=== PATIENT | male | born 1940 | race African-American/Black ===

== ENCOUNTER 2023-02-03 22:34 | Inpatient (IN) | payer OTHER, MEDICAID ==
[~2023-02-03] VITALS: Ht 165.1 cm; Wt 56.7 kg
[2023-02-03 22:44] VITALS: BP_SYST 105; PULSE 88; RESP 18; TEMP 97.9; O2SAT 95
[2023-02-03 23:45] LABS: BASOPHILS % (AUTO) 0.5 % (0.0-2.0); EOSINOPHILS # (AUTO) 0.1 K/uL (0.0-0.4); EOSINOPHILS % (AUTO) 0.9 % (0.0-4.0); LYMPHOCYTES # (AUTO) 0.5 K/uL (1.0-5.5); LYMPHOCYTES % (AUTO) 5.4 % (20.5-51.5); MEAN CORPUSCULAR HEMOGLOBIN 26 pg (27-31); MEAN CORPUSCULAR HGB CONC 33 % (32-36); MEAN CORPUSCULAR VOLUME 78 fL (79.0-98.0); MONOCYTES # (AUTO) 0.4 K/uL (0.0-1.0); MONOCYTES % (AUTO) 4.7 % (1.7-9.3); NEUTROPHILS # (AUTO) 7.5 K/uL (1.8-7.7); NEUTROPHILS % (AUTO) 88.5 % (40.0-70.0); PLATELET COUNT (AUTO) 318 K/uL (130-430); RED BLOOD CELL COUNT(AUTO) 2.45 MIL/uL (4.2-6.2); RED CELL DISTRIBUTION WIDTH 14.4 % (9.0-15.0); WHITE BLOOD COUNT (AUTO) 8.4 K/uL (4.8-10.8)
[2023-02-03 23:52] LABS: HEMATOCRIT 19.2 % (36-54); HEMOGLOBIN 6.3 g/dL (14.0-18.0)
[2023-02-03 23:59] LABS: ANION GAP 11 (5-15); CALCIUM 8.5 mg/dL (8.4-11.0); CARBON DIOXIDE 24 mmol/L (23-29); CHLORIDE 104 mmol/L (98-107); CREATININE 1.92 mg/dL (0.55-1.30); GLUCOSE 140 mg/dL (74-106); POTASSIUM 4.3 mmol/L (3.5-5.1); SODIUM SERUM 139 mmol/L (136-145); UREA NITROGEN, BLOOD 51 mg/dL (8-21)
[2023-02-04 00:06] LABS: ALANINE AMINOTRANSFERASE 23 U/L (12-78); ALBUMIN 1.9 g/dL (3.4-4.8); ASPARTATE AMINOTRANSFERASE 23 U/L (10-37); TOTAL BILIRUBIN 0.5 mg/dL (0.0-1.0); TOTAL PROTEIN, SERUM 6.5 g/dL (6.4-8.3)
[2023-02-04] MEDS ORDERED: ACET325T PO (03:21)
[2023-02-04] MEDS ORDERED: ASCO500T20 PO (03:22)
[2023-02-04] MEDS ORDERED: FURO-149 PO (03:22)
[2023-02-04] MEDS ORDERED: BISA10SU77 RC (03:22)
[2023-02-04] MEDS ORDERED: COR12.5 PO (03:22)
[2023-02-04] MEDS ORDERED: ACET-73 PO (03:22)
[2023-02-04] MEDS ORDERED: NITSL SL (03:22)
[2023-02-04] MEDS ORDERED: ALBU2.5V7 INH (03:22)
[2023-02-04] MEDS ORDERED: MOM PO (03:22)
[2023-02-04] MEDS ORDERED: BUDE0.5A4 IH (03:22)
[2023-02-04] MEDS ORDERED: NEPH PO (03:22)
[2023-02-04] MEDS ORDERED: HYDR100T25 PO (03:22)
[2023-02-04] MEDS ORDERED: HYDR-3917 PO (03:22)
[2023-02-04] MEDS ORDERED: FERR-31 PO (03:22)
[2023-02-04] MEDS ORDERED: SSNOVOLOG SUBCUT (03:22)
[2023-02-04] MEDS ORDERED: RESEYE OP (03:22)
[2023-02-04] MEDS ORDERED: ALEN10TA25 PO (03:22)
[2023-02-04] MEDS ORDERED: CLON0.1T PO (03:22)
[2023-02-04] MEDS ORDERED: LIP10 PO (03:22)
[2023-02-04] MEDS ORDERED: FINA5TAB3 PO (03:22)
[2023-02-04] MEDS ORDERED: ISOS30TA85 PO (03:22)
[2023-02-04] MEDS ORDERED: SENN8.6T19 PO (03:22)
[2023-02-04] MEDS ORDERED: AMLO5TAB4 PO (03:22)
[2023-02-04] MEDS ORDERED: DOCU-144 PO (03:22)
[2023-02-04] MEDS ORDERED: INSULIN LISPRO SLIDING SCALE 100 UNITS/ML, 3 ML VIAL (humaLOG) SUBCUT PRN (07:00)
[2023-02-04] MEDS ORDERED: POTASSIUM CHLORIDE 20 MEQ TAB.PRT.SR PO PRN (07:00)
[2023-02-04] MEDS ORDERED: LORazepam 2 MG/ML VIAL IVP PRN (07:00)
[2023-02-04] MEDS ORDERED: NALOXONE HCL 0.4 MG/ML AMP (NARCAN) IVP PRN ×2 (07:00)
[2023-02-04] MEDS ORDERED: MUPIROCIN 2% TOPICAL OINTMENT 22 GM NS PRN (07:00)
[2023-02-04] MEDS ORDERED: MAGNESIUM SULFATE 50 ML IV PRN (07:00)
[2023-02-04] MEDS ORDERED: DOCUSATE SODIUM 100 MG CAPSULE PO PRN (07:00)
[2023-02-04] MEDS ORDERED: MORPHINE 2 MG/ML INJ. SYRINGE IVP PRN ×2 (07:00)
[2023-02-04] MEDS ORDERED: ONDANSETRON HCL 4 MG/2 ML VIAL IVP PRN (07:00)
[2023-02-04] MEDS ORDERED: DEXTROSE 50% JECT 50 ML DISP.SYRIN IVP PRN (07:00)
[2023-02-04] MEDS ORDERED: ZOLPIDEM TARTRATE 5 MG TABLET PO PRN (07:00)
[2023-02-04 07:10] LABS: BILIRUBIN,URINE NEGATIVE (NEGATIVE); BLOOD, URINE NEGATIVE (NEGATIVE); CLARITY/URINE SLIGHTLY CLOUDY (CLEAR); COLOR,URINE YELLOW (YELLOW); GLUCOSE,URINE NEGATIVE (NEGATIVE); KETONES,URINE NEGATIVE (NEGATIVE); LEUKOCYTE ESTERASE ,URINE NEGATIVE (NEGATIVE); NITRITE, URINE NEGATIVE (NEGATIVE)
[2023-02-04 07:11] LABS: PROTEIN URINE 3+ (NEGATIVE); UROBILINOGEN,URINE 0.2 (0.2-1.0)
[2023-02-04 07:14] LABS: BACTERIA,URINE RARE /HPF (None Seen)
[2023-02-04] MEDS ORDERED: ALEN70TA84 PO (07:39)
[2023-02-04 07:59] LABS: ANION GAP 6 (5-15); CALCIUM 8.4 mg/dL (8.4-11.0); CARBON DIOXIDE 23 mmol/L (23-29); CHLORIDE 104 mmol/L (98-107); GLUCOSE 101 mg/dL (74-106); POTASSIUM 3.7 mmol/L (3.5-5.1); SODIUM SERUM 133 mmol/L (136-145); UREA NITROGEN, BLOOD 48 mg/dL (8-21)
[2023-02-04 08:07] LABS: BASOPHILS # (AUTO) 0.1 K/uL (0.0-0.2); EOSINOPHILS # (AUTO) 0.2 K/uL (0.0-0.4); EOSINOPHILS % (AUTO) 2.8 % (0.0-4.0); LYMPHOCYTES # (AUTO) 0.5 K/uL (1.0-5.5); LYMPHOCYTES % (AUTO) 8.5 % (20.5-51.5); MEAN CORPUSCULAR HEMOGLOBIN 26 pg (27-31); MEAN CORPUSCULAR HGB CONC 33 % (32-36); MEAN CORPUSCULAR VOLUME 79 fL (79.0-98.0); MONOCYTES # (AUTO) 0.4 K/uL (0.0-1.0); MONOCYTES % (AUTO) 6.1 % (1.7-9.3); NEUTROPHILS % (AUTO) 81.6 % (40.0-70.0); PLATELET COUNT (AUTO) 297 K/uL (130-430); RED CELL DISTRIBUTION WIDTH 13.9 % (9.0-15.0); WHITE BLOOD COUNT (AUTO) 6.1 K/uL (4.8-10.8)
[2023-02-04] MEDS: D5NS 1,000 ML IV SCH ×2 (08:16→08:56)
[2023-02-04 08:18] LABS: TOTAL IRON BIND. CAPACITY 77 ug/dL (250-450)
[2023-02-04 08:19] LABS: HEMOGLOBIN A1C 6.46 % (<5.7)
[2023-02-04 08:33] LABS: HEMATOCRIT 17.3 % (36-54); HEMOGLOBIN 5.7 g/dL (14.0-18.0)
[2023-02-04] MEDS: hydrALAZINE HCL 25 MG TABLET PO SCH ×3 (09:29→20:47)
[2023-02-04] MEDS: PANTOPRAZOLE SODIUM 40 MG/VIAL (PROTONIX) IVP SCH (09:29)
[2023-02-04 10:00] VITALS: BP_SYST 114; PULSE 78; RESP 20; TEMP 97.8; O2SAT 100
[2023-02-04] MEDS ORDERED: SOD FERRIC GLUC COMPLEX/SUC 125 MG in NS 100 ML IV SCH (13:15)
[2023-02-04] MEDS: IRON SUCROSE COMPLEX 100 MG in NS 50 ML IV SCH (15:50)
[2023-02-04 16:30] VITALS: BP_SYST 114; PULSE 80; O2SAT 100
[2023-02-04 20:00] VITALS: BP_SYST 163; PULSE 86; RESP 20; TEMP 100.1; O2SAT 98
[2023-02-04] MEDS: ACETAMINOPHEN 325 MG TABLET PO PRN (20:46)
[2023-02-05] VITALS (7 sets, daily range): BP systolic 140–151; PULSE 79–89; RESP 16–21; TEMP 97.8–99.3; O2SAT 97–99
[2023-02-05 05:27] LABS: BASOPHILS # (AUTO) 0.1 K/uL (0.0-0.2); BASOPHILS % (AUTO) 0.8 % (0.0-2.0); EOSINOPHILS # (AUTO) 0.3 K/uL (0.0-0.4); EOSINOPHILS % (AUTO) 3.8 % (0.0-4.0); HEMATOCRIT 27.3 % (36-54); HEMOGLOBIN 8.8 g/dL (14.0-18.0); LYMPHOCYTES # (AUTO) 0.4 K/uL (1.0-5.5); LYMPHOCYTES % (AUTO) 5.8 % (20.5-51.5); MEAN CORPUSCULAR HEMOGLOBIN 26 pg (27-31); MEAN CORPUSCULAR HGB CONC 32 % (32-36); MEAN CORPUSCULAR VOLUME 80 fL (79.0-98.0); MONOCYTES # (AUTO) 0.5 K/uL (0.0-1.0); MONOCYTES % (AUTO) 6.6 % (1.7-9.3); PLATELET COUNT (AUTO) 335 K/uL (130-430); RED BLOOD CELL COUNT(AUTO) 3.42 MIL/uL (4.2-6.2); RED CELL DISTRIBUTION WIDTH 14.9 % (9.0-15.0); WHITE BLOOD COUNT (AUTO) 7.2 K/uL (4.8-10.8)
[2023-02-05 05:46] LABS: ANION GAP 11 (5-15); CALCIUM 8.5 mg/dL (8.4-11.0); CARBON DIOXIDE 22 mmol/L (23-29); CHLORIDE 108 mmol/L (98-107); CREATININE 1.68 mg/dL (0.55-1.30); GLUCOSE 121 mg/dL (74-106); POTASSIUM 3.9 mmol/L (3.5-5.1); SODIUM SERUM 141 mmol/L (136-145); UREA NITROGEN, BLOOD 42 mg/dL (8-21)
[2023-02-05] MEDS: D5NS 1,000 ML IV SCH (06:29)
[2023-02-05] MEDS: ACETAMINOPHEN 325 MG TABLET PO PRN ×2 (06:38→22:19)
[2023-02-05 08:06] LABS: FERRITIN 336 ng/mL (30-400); FOLATE (FOLIC ACID) >20.0 ng/mL (>3.0)
[2023-02-05] MEDS: PANTOPRAZOLE SODIUM 40 MG/VIAL (PROTONIX) IVP SCH (08:59)
[2023-02-05] MEDS: hydrALAZINE HCL 25 MG TABLET PO SCH ×3 (08:59→22:18)
[2023-02-05] MEDS: IPRATROPIUM/ALBUTEROL SULFATE 3 ML AMPUL.NEB (DUONEB) INH PRN ×2 (10:33→22:40)
[2023-02-05] MEDS: IRON SUCROSE COMPLEX 100 MG in NS 50 ML IV SCH (14:55)
[2023-02-06 01:02] VITALS: BP_SYST 152; PULSE 86; RESP 16; TEMP 97.9; O2SAT 98
[2023-02-06 02:51] VITALS: O2SAT 98
[2023-02-06] MEDS: D5NS 1,000 ML IV SCH ×2 (05:42→16:12)
[2023-02-06 05:54] LABS: BASOPHILS # (AUTO) 0.1 K/uL (0.0-0.2); BASOPHILS % (AUTO) 0.8 % (0.0-2.0); EOSINOPHILS # (AUTO) 0.2 K/uL (0.0-0.4); EOSINOPHILS % (AUTO) 3.5 % (0.0-4.0); HEMATOCRIT 25.2 % (36-54); HEMOGLOBIN 8.1 g/dL (14.0-18.0); LYMPHOCYTES # (AUTO) 0.6 K/uL (1.0-5.5); LYMPHOCYTES % (AUTO) 8.4 % (20.5-51.5); MEAN CORPUSCULAR HEMOGLOBIN 26 pg (27-31); MEAN CORPUSCULAR HGB CONC 32 % (32-36); MEAN CORPUSCULAR VOLUME 81 fL (79.0-98.0); MONOCYTES # (AUTO) 0.4 K/uL (0.0-1.0); MONOCYTES % (AUTO) 5.3 % (1.7-9.3); NEUTROPHILS # (AUTO) 5.7 K/uL (1.8-7.7); PLATELET COUNT (AUTO) 297 K/uL (130-430); RED BLOOD CELL COUNT(AUTO) 3.11 MIL/uL (4.2-6.2); RED CELL DISTRIBUTION WIDTH 14.9 % (9.0-15.0); WHITE BLOOD COUNT (AUTO) 6.9 K/uL (4.8-10.8)
[2023-02-06 06:19] LABS: ANION GAP 9 (5-15); CALCIUM 8.1 mg/dL (8.4-11.0); CARBON DIOXIDE 23 mmol/L (23-29); CHLORIDE 109 mmol/L (98-107); CREATININE 1.82 mg/dL (0.55-1.30); GLUCOSE 93 mg/dL (74-106); SODIUM SERUM 141 mmol/L (136-145); UREA NITROGEN, BLOOD 41 mg/dL (8-21)
[2023-02-06] MEDS ORDERED: BENZOCAINE 20% 0.5mL UD SPRAY MM ONE (07:00)
[2023-02-06 08:00] VITALS: BP_SYST 154; PULSE 85; RESP 16; TEMP 97.9; O2SAT 98
[2023-02-06] MEDS ORDERED: MIDAZOLAM HCL 5 MG/5 ML VIAL ONE (08:54)
[2023-02-06] MEDS ORDERED: fentaNYL CITRATE/PF 100 MCG/2 ML AMP ONE (08:54)
[2023-02-06] MEDS: hydrALAZINE HCL 25 MG TABLET PO SCH ×3 (09:00→20:35)
[2023-02-06 11:00] VITALS: BP_SYST 151; PULSE 82; RESP 18; TEMP 98.9; O2SAT 99
[2023-02-06] MEDS: PANTOPRAZOLE SODIUM 40 MG/VIAL (PROTONIX) IVP SCH (11:22)
[2023-02-06] MEDS: IRON SUCROSE COMPLEX 100 MG in NS 50 ML IV SCH (14:04)
[2023-02-06 19:01] VITALS: BP_SYST 164; PULSE 84; RESP 18; TEMP 97.4; O2SAT 97
[2023-02-06 20:24] VITALS: BP_SYST 158; PULSE 100; RESP 22; TEMP 100.4; O2SAT 100
[2023-02-06] MEDS: ACETAMINOPHEN 325 MG TABLET PO PRN (20:34)
[2023-02-06] MEDS: FERROUS SULFATE 325 MG TABLET.DR PO SCH (20:35)
[2023-02-07] VITALS (9 sets, daily range): BP systolic 152–167; PULSE 68–96; RESP 17–22; TEMP 97.1–98.7; O2SAT 96–100
[2023-02-07 05:27] LABS: BASOPHILS # (AUTO) 0.1 K/uL (0.0-0.2); BASOPHILS % (AUTO) 0.7 % (0.0-2.0); EOSINOPHILS # (AUTO) 0.1 K/uL (0.0-0.4); EOSINOPHILS % (AUTO) 1.8 % (0.0-4.0); HEMATOCRIT 25.8 % (36-54); HEMOGLOBIN 8.3 g/dL (14.0-18.0); LYMPHOCYTES # (AUTO) 0.4 K/uL (1.0-5.5); LYMPHOCYTES % (AUTO) 5.4 % (20.5-51.5); MEAN CORPUSCULAR HEMOGLOBIN 26 pg (27-31); MEAN CORPUSCULAR HGB CONC 32 % (32-36); MEAN CORPUSCULAR VOLUME 82 fL (79.0-98.0); MONOCYTES # (AUTO) 0.4 K/uL (0.0-1.0); MONOCYTES % (AUTO) 5.1 % (1.7-9.3); NEUTROPHILS # (AUTO) 6.9 K/uL (1.8-7.7); PLATELET COUNT (AUTO) 310 K/uL (130-430); RED BLOOD CELL COUNT(AUTO) 3.16 MIL/uL (4.2-6.2); RED CELL DISTRIBUTION WIDTH 14.8 % (9.0-15.0)
[2023-02-07 05:32] LABS: ANION GAP 8 (5-15); CALCIUM 8.4 mg/dL (8.4-11.0); CARBON DIOXIDE 24 mmol/L (23-29); CHLORIDE 111 mmol/L (98-107); CREATININE 1.64 mg/dL (0.55-1.30); GLUCOSE 128 mg/dL (74-106); POTASSIUM 4.6 mmol/L (3.5-5.1); SODIUM SERUM 143 mmol/L (136-145); UREA NITROGEN, BLOOD 31 mg/dL (8-21)
[2023-02-07] MEDS: D5NS 1,000 ML IV SCH (06:51)
[2023-02-07] MEDS ORDERED: PANTOPRAZOLE SODIUM 40 MG TAB PO SCH (09:00)
[2023-02-07] MEDS: FERROUS SULFATE 325 MG TABLET.DR PO SCH (09:35)
[2023-02-07] MEDS: hydrALAZINE HCL 25 MG TABLET PO SCH (09:36)
[2023-02-07] MEDS: ACETAMINOPHEN 325 MG TABLET PO PRN (13:05)
[2023-02-07] MEDS ORDERED: cloNIDine HCL 0.1 MG TABLET PO ONE (13:30)
[2023-02-11 12:59] LABS: CREATININE 1.87 mg/dL (0.55-1.30)
[2023-02-12] MEDS ORDERED: ALPR0.5T PO (23:01)
[2023-02-16] MEDS ORDERED: AMLO5TAB4 PO (08:28)
[2023-02-16] MEDS ORDERED: AMOX-423 PO (08:29)
== END 2023-02-07 14:30 | DRG 378 ==
LOC: SED 22:34 → STU 02-04 01:49 → SMU 02-05 10:37
PROVIDERS: ADMIT General Practice; ATTEND General Practice
PROC: 30233N1 Transfusion of Nonautologous Red Blood Cells into Peripheral Vein, Percutaneous Approach (ICD-10-PCS; 2023-02-04)
PROC: 0DB78ZX Excision of Stomach, Pylorus, Via Natural or Artificial Opening Endoscopic, Diagnostic (ICD-10-PCS; principal; 2023-02-06 10:00)
DX: K29.81 Duodenitis with bleeding (principal); E44.0 Moderate protein-calorie malnutrition; N17.9 Acute kidney failure, unspecified; K29.70 Gastritis, unspecified, without bleeding; J44.9 Chronic obstructive pulmonary disease, unspecified; D50.9 Iron deficiency anemia, unspecified; D63.1 Anemia in chronic kidney disease; N18.9 Chronic kidney disease, unspecified; I12.9 Hypertensive chronic kidney disease with stage 1 through stage 4 chronic kidney disease, or unspecified chronic kidney disease; E78.5 Hyperlipidemia, unspecified; Z68.20 Body mass index [BMI] 20.0-20.9, adult
CPT/HCPCS: 36415; 43239; 71045; 80048; 80053; 81000; 82607; 82728; 82746; 82962; 83037; 83540; 83550; 83735; 83880; 84484; 85025; 86886; 86900; 86901; 86920; 87081; 88305; 88312; 88313; 93005; 94640; 94760; 99285; C9113; G0378; J1756; J2250; J3010; J7030; J7040; J7042; P9021

== ENCOUNTER 2023-03-23 09:07 | Inpatient (IN) | payer OTHER, MEDICAID ==
[~2023-03-23] VITALS: Ht 165.1 cm; Wt 56.7 kg
[2023-03-23 09:07] VITALS: BP_SYST 156; PULSE 66; RESP 17; TEMP 97.8; O2SAT 99
[~2023-03-23 09:07] MED LIST: ACET325T PO; ALBU2.5V7 INH; ALEN70TA84 PO; ALPR0.5T PO; AMLO5TAB4 PO; AMOX-423 PO; ASCO500T20 PO; BISA10SU77 RC; BUDE0.5A4 IH; CLON0.1T PO; COR12.5 PO; DOCU-144 PO; FERR-31 PO; FINA-37 PO; FURO-149 PO; HYDR-3917 PO; HYDR100T25 PO; ISOS30TA85 PO; LIP10 PO; MOM PO; NEPH PO; NITSL SL; RESEYE OP; SENN8.6T19 PO; SSNOVOLOG SUBCUT
[2023-03-23 09:40] LABS: BASOPHILS % (AUTO) 1.2 % (0.0-2.0); MEAN CORPUSCULAR HGB CONC 32 % (32-36); MONOCYTES # (AUTO) 0.2 K/uL (0.0-1.0); NEUTROPHILS # (AUTO) 2.7 K/uL (1.8-7.7); RED BLOOD CELL COUNT(AUTO) 2.46 MIL/uL (4.2-6.2); WHITE BLOOD COUNT (AUTO) 3.6 K/uL (4.8-10.8)
[2023-03-23 09:46] LABS: EOSINOPHILS # (AUTO) 0.2 K/uL (0.0-0.4); EOSINOPHILS % (AUTO) 4.3 % (0.0-4.0); LYMPHOCYTES # (AUTO) 0.6 K/uL (1.0-5.5); LYMPHOCYTES % (AUTO) 15.5 % (20.5-51.5); MEAN CORPUSCULAR HEMOGLOBIN 27 pg (27-31); MEAN CORPUSCULAR VOLUME 84 fL (79.0-98.0); PLATELET COUNT (AUTO) 128 K/uL (130-430); RED CELL DISTRIBUTION WIDTH 19.7 % (9.0-15.0)
[2023-03-23 09:52] LABS: HEMATOCRIT 20.6 % (36-54); HEMOGLOBIN 6.6 g/dL (14.0-18.0)
[2023-03-23 10:04] LABS: ANION GAP 4 (5-15); CALCIUM 7.2 mg/dL (8.4-11.0); CARBON DIOXIDE 26 mmol/L (23-29); CHLORIDE 109 mmol/L (98-107); CREATININE 1.29 mg/dL (0.55-1.30); GLUCOSE 103 mg/dL (74-106); POTASSIUM 4.6 mmol/L (3.5-5.1); SODIUM SERUM 139 mmol/L (136-145); UREA NITROGEN, BLOOD 25 mg/dL (8-21)
[2023-03-23 10:13] LABS: ALANINE AMINOTRANSFERASE 28 U/L (12-78); ALBUMIN 2.2 g/dL (3.4-4.8); ASPARTATE AMINOTRANSFERASE 23 U/L (10-37); TOTAL BILIRUBIN 0.4 mg/dL (0.0-1.0); TOTAL PROTEIN, SERUM 5.4 g/dL (6.4-8.3)
[2023-03-23] MEDS ORDERED: IBUPROFEN 800 MG TABLET PO ONE (11:00)
[2023-03-23] MEDS ORDERED: traMADol HCL HCL 50 MG TABLET (ULTRAM) PO ONE (11:00)
[2023-03-23] MEDS ORDERED: NORMAL SALINE 5 ML DISP.SYRIN IVF SCH (11:45)
[2023-03-23 19:54] LABS: BILIRUBIN,URINE NEGATIVE (NEGATIVE); CLARITY/URINE CLEAR (CLEAR); COLOR,URINE YELLOW (YELLOW); GLUCOSE,URINE NEGATIVE (NEGATIVE); KETONES,URINE NEGATIVE (NEGATIVE); LEUKOCYTE ESTERASE ,URINE NEGATIVE (NEGATIVE); NITRITE, URINE NEGATIVE (NEGATIVE); PH,URINE 5.5 (5.0-8.0); PROTEIN URINE 3+ (NEGATIVE); UROBILINOGEN,URINE 0.2 (0.2-1.0)
[2023-03-23 19:57] LABS: BLOOD, URINE TRACE (NEGATIVE)
[2023-03-23 20:50] LABS: BACTERIA,URINE FEW /HPF (None Seen)
[2023-03-23 20:51] LABS: FINE GRANULAR CASTS,URINE 0-10 /LPF (None Seen); MUCUS,URINE 1+ /LPF (None Seen)
[2023-03-23 21:13] LABS: EOSINOPHILS # (AUTO) 0.2 K/uL (0.0-0.4); EOSINOPHILS % (AUTO) 5.7 % (0.0-4.0); HEMATOCRIT 29.6 % (36-54); HEMOGLOBIN 9.5 g/dL (14.0-18.0); LYMPHOCYTES # (AUTO) 0.7 K/uL (1.0-5.5); MEAN CORPUSCULAR HEMOGLOBIN 28 pg (27-31); MEAN CORPUSCULAR HGB CONC 32 % (32-36); MEAN CORPUSCULAR VOLUME 87 fL (79.0-98.0); MONOCYTES # (AUTO) 0.2 K/uL (0.0-1.0); MONOCYTES % (AUTO) 7.1 % (1.7-9.3); NEUTROPHILS # (AUTO) 2.3 K/uL (1.8-7.7); NEUTROPHILS % (AUTO) 67.2 % (40.0-70.0); PLATELET COUNT (AUTO) 123 K/uL (130-430); RED BLOOD CELL COUNT(AUTO) 3.42 MIL/uL (4.2-6.2); RED CELL DISTRIBUTION WIDTH 18.3 % (9.0-15.0); WHITE BLOOD COUNT (AUTO) 3.5 K/uL (4.8-10.8)
[2023-03-23] MEDS: PANTOPRAZOLE SODIUM 40 MG/VIAL (PROTONIX) IVP SCH (21:54)
[2023-03-23] MEDS: NACL 0.9% 1,000 ML IV SCH ×2 (21:55→22:45)
[2023-03-23 22:00] VITALS: O2SAT 100
[2023-03-23 22:07] VITALS: BP_SYST 129; PULSE 66; RESP 19; TEMP 98.4
[2023-03-24] VITALS (8 sets, daily range): BP systolic 154–201; PULSE 62–67; RESP 18–20; TEMP 97.4–98.4; O2SAT 94–99
[2023-03-24 05:44] LABS: BASOPHILS # (AUTO) 0.1 K/uL (0.0-0.2); BASOPHILS % (AUTO) 2.4 % (0.0-2.0); EOSINOPHILS # (AUTO) 0.2 K/uL (0.0-0.4); EOSINOPHILS % (AUTO) 5.5 % (0.0-4.0); HEMATOCRIT 29.3 % (36-54); HEMOGLOBIN 9.4 g/dL (14.0-18.0); LYMPHOCYTES # (AUTO) 0.4 K/uL (1.0-5.5); LYMPHOCYTES % (AUTO) 11.9 % (20.5-51.5); MEAN CORPUSCULAR HEMOGLOBIN 28 pg (27-31); MEAN CORPUSCULAR HGB CONC 32 % (32-36); MEAN CORPUSCULAR VOLUME 87 fL (79.0-98.0); MONOCYTES # (AUTO) 0.2 K/uL (0.0-1.0); MONOCYTES % (AUTO) 6.7 % (1.7-9.3); NEUTROPHILS # (AUTO) 2.5 K/uL (1.8-7.7); NEUTROPHILS % (AUTO) 73.5 % (40.0-70.0); PLATELET COUNT (AUTO) 114 K/uL (130-430); RED BLOOD CELL COUNT(AUTO) 3.38 MIL/uL (4.2-6.2); RED CELL DISTRIBUTION WIDTH 18.1 % (9.0-15.0); WHITE BLOOD COUNT (AUTO) 3.5 K/uL (4.8-10.8)
[2023-03-24 06:21] LABS: ALANINE AMINOTRANSFERASE 30 U/L (12-78); ALBUMIN 2.2 g/dL (3.4-4.8); ANION GAP 5 (5-15); ASPARTATE AMINOTRANSFERASE 23 U/L (10-37); CALCIUM 7.1 mg/dL (8.4-11.0); CARBON DIOXIDE 24 mmol/L (23-29); CHLORIDE 108 mmol/L (98-107); CREATININE 1.22 mg/dL (0.55-1.30); GLUCOSE 71 mg/dL (74-106); PHOSPHORUS 3.9 mg/dL (2.7-4.5); POTASSIUM 4.8 mmol/L (3.5-5.1); SODIUM SERUM 137 mmol/L (136-145); TOTAL BILIRUBIN 0.5 mg/dL (0.0-1.0); TOTAL PROTEIN, SERUM 5.5 g/dL (6.4-8.3); UREA NITROGEN, BLOOD 24 mg/dL (8-21)
[2023-03-24] MEDS: NACL 0.9% 1,000 ML IV SCH ×2 (07:10→18:33)
[2023-03-24] MEDS ORDERED: POTASSIUM CHLORIDE 20 MEQ TAB.PRT.SR PO PRN (08:15)
[2023-03-24] MEDS ORDERED: NALOXONE HCL 0.4 MG/ML AMP (NARCAN) IVP PRN ×2 (08:15)
[2023-03-24] MEDS ORDERED: MORPHINE 2 MG/ML INJ. SYRINGE IVP PRN ×2 (08:15)
[2023-03-24] MEDS ORDERED: ZOLPIDEM TARTRATE 5 MG TABLET PO PRN (08:15)
[2023-03-24] MEDS ORDERED: ONDANSETRON HCL 4 MG/2 ML VIAL IVP PRN (08:15)
[2023-03-24] MEDS ORDERED: ACETAMINOPHEN 325 MG TABLET PO PRN ×2 (08:15→09:45)
[2023-03-24] MEDS ORDERED: MAGNESIUM SULFATE 50 ML IV PRN (08:15)
[2023-03-24] MEDS ORDERED: ALBUTEROL SULFATE 0.083% 2.5 MG/3 ML VIAL.NEB INH PRN (08:15)
[2023-03-24] MEDS ORDERED: MUPIROCIN 2% TOPICAL OINTMENT 22 GM NS PRN (08:15)
[2023-03-24] MEDS ORDERED: DOCUSATE SODIUM 100 MG CAPSULE PO PRN (08:15)
[2023-03-24] MEDS ORDERED: LORazepam 2 MG/ML VIAL IVP PRN (08:15)
[2023-03-24 08:46] LABS: TOTAL IRON BIND. CAPACITY 162 ug/dL (250-450)
[2023-03-24] MEDS ORDERED: cloNIDine HCL 0.2 MG TABLET ONE (08:53)
[2023-03-24] MEDS ORDERED: ATORVASTATIN 20 MG TABLET PO SCH (09:00)
[2023-03-24] MEDS ORDERED: cloNIDine HCL 0.2 MG TABLET PO ONE (09:00)
[2023-03-24] MEDS: PANTOPRAZOLE SODIUM 40 MG/VIAL (PROTONIX) IVP SCH ×2 (09:16→23:55)
[2023-03-24] MEDS: FINASTERIDE 5 MG TABLET (PROSCAR) PO SCH (09:51)
[2023-03-24] MEDS: ASCORBIC ACID 500 MG TABLET PO SCH (09:52)
[2023-03-24] MEDS: FERROUS SULFATE 325 MG TABLET.DR PO SCH ×2 (09:52→23:56)
[2023-03-24] MEDS: CARVEDILOL 12.5 MG TABLET (COREG) PO SCH ×2 (09:52→23:56)
[2023-03-24 11:08] LABS: THYROID STIMULATING HORMONE 2.89 uIu/mL (0.36-3.74)
[2023-03-24] MEDS: hydrALAZINE HCL 20 MG/ML VIAL IVP PRN ×2 (11:11→17:38)
[2023-03-24] MEDS ORDERED: COLCHICINE 0.6 MG TABLET PO ONE (13:00)
[2023-03-24] MEDS: hydrALAZINE HCL 25 MG TABLET PO SCH ×2 (13:07→23:58)
[2023-03-24] MEDS ORDERED: hydrALAZINE HCL 25 MG TABLET PO SCH (15:00)
[2023-03-24] MEDS: INDOMETHACIN 25 MG CAPSULE(INDOCIN) PO SCH (18:34)
[2023-03-24] MEDS ORDERED: amLODIPine BESYLATE 10 MG TABLET PO SCH (21:00)
[2023-03-24] MEDS ORDERED: ATORVASTATIN 10 MG TABLET PO SCH (21:00)
[2023-03-24] MEDS: COLCHICINE 0.6 MG TABLET PO SCH (23:55)
[2023-03-25] VITALS (7 sets, daily range): BP systolic 141–210; PULSE 67–81; RESP 20; TEMP 97.7–98.4; O2SAT 97–99
[2023-03-25] MEDS: NACL 0.9% 1,000 ML IV SCH ×2 (04:45→14:45)
[2023-03-25 06:06] LABS: FERRITIN 505 ng/mL (30-400)
[2023-03-25] MEDS: hydrALAZINE HCL 25 MG TABLET PO SCH (06:06)
[2023-03-25 06:11] LABS: BASOPHILS % (AUTO) 1.2 % (0.0-2.0); EOSINOPHILS # (AUTO) 0.1 K/uL (0.0-0.4); EOSINOPHILS % (AUTO) 4.5 % (0.0-4.0); HEMATOCRIT 28.2 % (36-54); HEMOGLOBIN 9.2 g/dL (14.0-18.0); LYMPHOCYTES # (AUTO) 0.5 K/uL (1.0-5.5); LYMPHOCYTES % (AUTO) 13.9 % (20.5-51.5); MEAN CORPUSCULAR HEMOGLOBIN 28 pg (27-31); MEAN CORPUSCULAR HGB CONC 33 % (32-36); MEAN CORPUSCULAR VOLUME 86 fL (79.0-98.0); MONOCYTES # (AUTO) 0.2 K/uL (0.0-1.0); MONOCYTES % (AUTO) 6.7 % (1.7-9.3); NEUTROPHILS # (AUTO) 2.4 K/uL (1.8-7.7); NEUTROPHILS % (AUTO) 73.7 % (40.0-70.0); PLATELET COUNT (AUTO) 103 K/uL (130-430); RED BLOOD CELL COUNT(AUTO) 3.26 MIL/uL (4.2-6.2); RED CELL DISTRIBUTION WIDTH 18.4 % (9.0-15.0); WHITE BLOOD COUNT (AUTO) 3.3 K/uL (4.8-10.8)
[2023-03-25 07:06] LABS: FOLATE (FOLIC ACID) >20.0 ng/mL (>3.0)
[2023-03-25 07:09] LABS: ANION GAP 9 (5-15); CARBON DIOXIDE 21 mmol/L (23-29); CHLORIDE 113 mmol/L (98-107); CREATININE 1.23 mg/dL (0.55-1.30); GLUCOSE 87 mg/dL (74-106); POTASSIUM 4.7 mmol/L (3.5-5.1); SODIUM SERUM 143 mmol/L (136-145); UREA NITROGEN, BLOOD 28 mg/dL (8-21)
[2023-03-25 07:27] LABS: CALCIUM 6.9 mg/dL (8.4-11.0)
[2023-03-25] MEDS: COLCHICINE 0.6 MG TABLET PO SCH (08:18)
[2023-03-25] MEDS: ASCORBIC ACID 500 MG TABLET PO SCH (08:18)
[2023-03-25] MEDS: INDOMETHACIN 25 MG CAPSULE(INDOCIN) PO SCH (08:20)
[2023-03-25] MEDS: FINASTERIDE 5 MG TABLET (PROSCAR) PO SCH (08:20)
[2023-03-25] MEDS: PANTOPRAZOLE SODIUM 40 MG/VIAL (PROTONIX) IVP SCH (08:21)
[2023-03-25] MEDS: FERROUS SULFATE 325 MG TABLET.DR PO SCH (08:23)
[2023-03-25] MEDS: CARVEDILOL 12.5 MG TABLET (COREG) PO SCH (08:23)
[2023-03-25] MEDS: hydrALAZINE HCL 20 MG/ML VIAL IVP PRN (08:43)
[2023-03-25] MEDS ORDERED: FUROSEMIDE 40 MG TABLET PO SCH (09:00)
[2023-03-25] MEDS ORDERED: ISOSORBIDE MONONITRATE 30 MG TAB.ER.24H PO SCH (09:00)
[2023-03-25] MEDS ORDERED: hydrALAZINE HCL 25 MG TABLET PO ONE (12:00)
[2023-03-25] MEDS ORDERED: cloNIDine HCL 0.2 MG TABLET PO ONE (17:30)
[2023-03-25] MEDS ORDERED: ATORVASTATIN 10 MG TABLET PO SCH (21:00)
[2023-03-25] MEDS ORDERED: hydrALAZINE HCL 25 MG TABLET PO SCH (22:00)
== END 2023-03-25 18:03 | DRG 811 ==
LOC: SED 09:07 → STU 11:31 → SED 12:00 → STU 20:00
PROVIDERS: ADMIT General Practice; ATTEND General Practice
PROC: 30233N1 Transfusion of Nonautologous Red Blood Cells into Peripheral Vein, Percutaneous Approach (ICD-10-PCS; principal; 2023-03-23)
DX: D62 Acute posthemorrhagic anemia (principal); E43 Unspecified severe protein-calorie malnutrition; I31.39 Other pericardial effusion (noninflammatory); I13.0 Hypertensive heart and chronic kidney disease with heart failure and stage 1 through stage 4 chronic kidney disease, or unspecified chronic kidney disease; I16.0 Hypertensive urgency; K21.9 Gastro-esophageal reflux disease without esophagitis; K29.70 Gastritis, unspecified, without bleeding; I25.10 Atherosclerotic heart disease of native coronary artery without angina pectoris; E11.22 Type 2 diabetes mellitus with diabetic chronic kidney disease; I50.9 Heart failure, unspecified; N18.9 Chronic kidney disease, unspecified; Z79.1 Long term (current) use of non-steroidal anti-inflammatories (NSAID); Z79.899 Other long term (current) drug therapy; Z68.20 Body mass index [BMI] 20.0-20.9, adult
CPT/HCPCS: 36415; 71045; 80048; 80053; 81000; 82607; 82728; 82746; 82962; 83037; 83540; 83550; 83690; 83735; 84100; 84439; 84443; 84484; 85025; 86886; 86900; 86901; 86920; 87081; 93005; 93306; 94640; 94760; 99285; C9113; G0378; J0360; P9021